=== PATIENT | female | born 1980 | race African-American/Black ===

== ENCOUNTER 2017-03-30 13:55 | Emergency (ER) | payer MEDICARE, MEDICAID ==
[~2017-03-30] VITALS: Ht 160 cm; Wt 54.4 kg
[~2017-03-30 13:55] MED LIST: NKM
[2017-03-30 14:33] LABS: APPEARANCE,URINE CLEAR; BILIRUBIN, URINE NEGATIVE (NEGATIVE); GLUCOSE, URINE (UA) NEGATIVE (NEGATIVE); KETONES,URINE NEGATIVE (NEGATIVE); LEUKOCYTE ESTERASE ,URINE 3+ (NEGATIVE); NITRITE,URINE NEGATIVE (NEGATIVE); PH,URINE 6.5 (4.5-8.0); PROTEIN,URINE NEGATIVE (NEGATIVE); UROBILINOGEN,URINE NORMAL MG/DL (0.0-1.0)
[2017-03-30 14:42] LABS: COLOR,URINE YELLOW
[2017-03-30] MEDS ORDERED: Dicyclomine HCl 10mg/5ml oral soln ORAL ONE (14:45)
[2017-03-30] MEDS ORDERED: Lidocaine 1% MPF 10mg/ml 5ml INJ ONE (14:45)
--- NOTE | 2017-03-30 15:14 | Emergency Room Report ---
History of Present Illness General Chief Complaint: Vaginal Source: Patient Present Illness HPI 36-year-old female presents to the emergency department complaining of 7/10 in severity vaginal burning, itching as well as discharge. Patient reports recent unprotected intercourse she might to be treated for STDs. Patient states her symptoms have been present for one week and she is now starting to develop lower abdominal pain and has had 2 episodes of intermittent dizziness described as off balance for a second or two. Denies diarrhea. Patient reports diarrhea x3 days she denies vomiting however she reports nausea. Denies fevers or chills. Denies recent travel or ill contacts. She reports midline lower abdominal tenderness. Denies swollen tender lymph nodes, painful joints or external vaginal lesions. Patient states that she does not know if she could be are not. Denies CP, Palpitations, LOC, AMS, Changes in Vision, Sensation, paresthesias, or a sudden severe headache. Allergies: Coded Allergies: No Known Allergies (Unverified , 12/16/11) Patient History Past Medical History: see triage record Past Surgical History: none Pertinent Family History: none Reviewed Nursing Documentation: PMH: Agreed, PSxH: Agreed Nursing Documentation-PMH Past Medical History: No Stated History Review of Systems All Other Systems: negative except mentioned in HPI Physical Exam Vital Signs Date Time Temp Pulse Resp B/P (MAP) Pulse Ox O2 Delivery O2 Flow Rate FiO2 03/30/17 13:58 98.7 80 18 136/80 99 Room Air 98.8 Sp02 EP Interpretation: reviewed, normal General Appearance: no apparent distress, alert, GCS 15, non-toxic Head: normocephalic, atraumatic Eyes: left eye other - echymosis about left eye appears healing, bilateral eye normal inspection, bilateral eye PERRL ENT: hearing grossly normal, normal voice Neck: full range of motion, no bony tend Respiratory: lungs clear, normal breath sounds, speaking full sentences Cardiovascular #1: regular rate, rhythm Gastrointestinal: normal bowel sounds - hyperactive in all 4 quadrants, soft, non-distended, no guarding, tenderness - ttp to the midline lower abdomen, no llq ttp. Rectal: deferred Genitourinary: normal inspection, no CVA tenderness, adnexa normal, cervix normal, os closed, other - thin white vaginal d/c noted. no CMT Musculoskeletal: back normal, gait/station normal, normal range of motion, non- tender Neurologic: alert, oriented x3, responsive, motor strength/tone normal, sensory intact, speech normal, grossly normal Psychiatric: judgement/insight normal Skin: normal color, no rash, warm/dry, well hydrated Lymphatic: no adenopathy Medical Decision Making PA Attestation Dr. jerome is my supervising Physician whom patient management has been discussed with. Diagnostic Impression: Primary Impression: Bacterial vaginosis Additional Impression: Urinary tract infection Qualified Codes: N30.01 - Acute cystitis with hematuria ER Course 36-year-old female presents to the emergency department complaining of 7/10 in severity vaginal burning, itching as well as discharge. Patient reports recent unprotected intercourse she might to be treated for STDs. Patient states her symptoms have been present for one week and she is now starting to develop lower abdominal pain and has had 2 episodes of intermittent dizziness described as off balance for a second or two. Denies diarrhea. Patient reports diarrhea x3 days she denies vomiting however she reports nausea. Denies fevers or chills. Denies recent travel or ill contacts. She reports midline lower abdominal tenderness. Denies swollen tender lymph nodes, painful joints or external vaginal lesions. Patient states that she does not know if she could be are not. Denies CP, Palpitations, LOC, AMS, Changes in Vision, Sensation, paresthesias, or a sudden severe headache. Ddx considered but are not limited to UTi , Pyelo, STI, Stone, Cystitis, vaginal laceration, vaginitis. Vital signs: are WNL, pt. is afebrile H& PE are most consistent with: suspected UTI with possible bacterial vaginosis , and recent exposure to venereal diseases. ORDERS: - UA labs are attached -Urine Hcg: Negative -Wet Mount Prep: rare clue cells , no yeast, no trich ED INTERVENTIONS: -Bentyl -Pyridium PO -Rocephin IM Pt able to tolerate oral food and liquids while awaiting lab results. DISCHARGE: At this time pt. is stable for d/c to home. Will provide printed patient care instructions, and any necessary prescriptions. Care plan and follow up instructions have been discussed with the patient prior to discharge. Labs Test 03/30/17 14:18 Urine Color Yellow Urine Appearance Clear Urine pH 6.5 (4.5-8.0) Urine Specific [place] 1.020 (1.005-1.035) Urine Protein Negative (NEGATIVE) Urine Glucose (UA) Negative (NEGATIVE) Urine Ketones Negative (NEGATIVE) Urine Occult Blood 1+ (NEGATIVE) Urine Nitrite Negative (NEGATIVE) Urine Bilirubin Negative (NEGATIVE) Urine Urobilinogen Normal MG/DL (0.0-1.0) Urine Leukocyte Esterase 3+ (NEGATIVE) Urine RBC 0-2 /HPF (0 - 2) Urine WBC 5-10 /HPF (0 - 2) Urine Squamous Epithelial Cells Moderate /LPF (NONE/OCC) Urine Bacteria Few /HPF (NONE) Urine Mucus Few /LPF (NONE/OCC) Urine HCG, Qualitative Negative Last Vital Signs Date Time Temp Pulse Resp B/P (MAP) Pulse Ox O2 Delivery O2 Flow Rate FiO2 03/30/17 13:58 98.7 80 18 136/80 99 Room Air 98.8 Disposition: HOME, SELF-CARE Condition: Stable Scripts Metronidazole* (METROGEL-VAGINAL*) 70 Gm Gel.w.appl 1 APPL VAGIN BEDTIME for 5 Days, #180 GM Prov: Cynthia Holcomb P.A. 03/30/17 Phenazopyridine Hcl* (PYRIDIUM*) 200 Mg Tablet 200 MG ORAL THREE TIMES A DAY, #9 TAB 0 Refills Prov: Cynthia Holcomb P.A. 03/30/17 Nitrofurantoin Monohyd/M-Cryst* (MACROBID 100 MG*) 100 Mg Capsule 100 MG ORAL EVERY 12 HOURS for 5 Days, #10 CAP Prov: Cynthia Holcomb P.A. 03/30/17 Doxycycline Hyclate* (VIBRAMYCIN*) 100 Mg Capsule 100 MG ORAL EVERY 12 HOURS for 7 Days, #14 CAP 0 Refills Prov: Cynthia Holcomb P.A. 03/30/17 Patient Instructions: Bacterial Vaginosis, [id number], Urinary Tract Infection, [id number] Additional Instructions: Take medications as directed. !!! ! Do not drink alcohol while taking Flagyl/Metronidazole as this will cause a skin reaction. Pyridium will cause your urine to change color (Red/Assumption), this is a normal side effect of the medication. Follow up with a Primary Care Provider in 3-5 days, even if your symptoms have resolved. --Please review list of primary care clinics, if you do not already have a primary care provider Return sooner to ED if new symptoms occur, or current symptoms become worse. - Please note that this Emergency Department Report was dictated using [employer] piece repairer technology software, occasionally this can lead to erroneous entry secondary to interpretation by the dictation equipment. Cynthia Holcomb Mar 30, 2017 15:14
[2017-03-30] MEDS ORDERED: Phenazopyridine 200mg tab ORAL ONE (15:15)
[2017-03-30] MEDS ORDERED: VIBRAMYCIN100 MG ORAL (15:17)
[2017-03-30] MEDS ORDERED: METROGEL-VAGINA70 G1 VAGIN (15:17)
[2017-03-30] MEDS ORDERED: NITROFURANTOIN100 M2 ORAL (15:17)
[2017-03-30] MEDS ORDERED: PHENAZOPYRIDIN200 MG ORAL (15:17)
[2017-03-30 15:27] VITALS: BP 132/76
== END 2017-03-30 15:30 | disposition home or self-care (01) ==
LOC: EDBD 13:55 → EMR 14:30
DX: N76.0 Acute vaginitis (principal); B96.89 Other specified bacterial agents as the cause of diseases classified elsewhere; N39.0 Urinary tract infection, site not specified
CPT/HCPCS: 81003; 81025; 87210; 96372; 99284; J0696

== ENCOUNTER 2018-01-10 01:48 | Emergency (ER) | payer BC, MEDICAID ==
[~2018-01-10] VITALS: Ht 160 cm; Wt 59.0 kg
[~2018-01-10 01:48] MED LIST changes: +METROGEL-VAGINA70 G1 VAGIN; +NITROFURANTOIN100 M2 ORAL; +PHENAZOPYRIDIN200 MG ORAL; +VIBRAMYCIN100 MG ORAL
[2018-01-10 01:55] VITALS: BP 126/85
[2018-01-10 02:29] LABS: APPEARANCE,URINE CLEAR; BILIRUBIN, URINE NEGATIVE (NEGATIVE); COLOR,URINE YELLOW; GLUCOSE, URINE (UA) NEGATIVE (NEGATIVE); KETONES,URINE NEGATIVE (NEGATIVE); LEUKOCYTE ESTERASE ,URINE 1+ (NEGATIVE); NITRITE,URINE NEGATIVE (NEGATIVE); PH,URINE 6 (4.5-8.0); PROTEIN,URINE 2+ (NEGATIVE); UROBILINOGEN,URINE 1 MG/DL (0.0-1.0)
[2018-01-10] MEDS ORDERED: Azithromycin 250mg tab ORAL ONE (03:00)
[2018-01-10] MEDS ORDERED: Lidocaine 1% MPF 10mg/ml 5ml INJ ONE (03:00)
[2018-01-10] MEDS ORDERED: METROGEL-VAGINA70 G1 VAGIN (03:03)
[2018-01-10 03:33] VITALS: BP 125/85
--- NOTE | 2018-01-12 06:54 | Emergency Room Report ---
History of Present Illness General Chief Complaint: Female Urogenital Problems Source: Patient Present Illness HPI 37-year-old female presents ED for evaluation. Brought in by EMS. Patient told EMS that she's been having a STD for the last year. Notes some itching and discharge. Denies pain. Denies fevers chills. Denies any recent unprotected sex. Denies dysuria or hematuria. Denies flank pain. Denies nausea or vomiting. All other aggravating relieving factors. Denies any other associated symptoms Allergies: Coded Allergies: No Known Allergies (Unverified , 12/16/11) Patient History Past Medical History: HTN Past Surgical History: none Pertinent Family History: none Social History: Denies: smoking, alcohol use, drug use Last Menstrual Period: nov 24 Now: No - unknown Immunizations: UTD Reviewed Nursing Documentation: PMH: Agreed; PSxH: Agreed Nursing Documentation-PMH Hx Hypertension: Yes Review of Systems All Other Systems: negative except mentioned in HPI Physical Exam Vital Signs Date Time Temp Pulse Resp B/P (MAP) Pulse Ox O2 Delivery O2 Flow Rate FiO2 01/10/18 01:49 98.2 74 16 126/85 97 Room Air Sp02 EP Interpretation: reviewed, normal General Appearance: no apparent distress, alert, GCS 15, non-toxic Head: normocephalic, atraumatic Eyes: bilateral eye normal inspection, bilateral eye PERRL ENT: hearing grossly normal, normal pharynx, no angioedema, normal voice Neck: full range of motion, supple/symm/no masses Respiratory: chest non-tender, lungs clear, normal breath sounds, speaking full sentences Cardiovascular #1: regular rate, rhythm, no edema Cardiovascular #2: 2+ carotid (R), 2+ carotid (L), 2+ radial (R), 2+ radial (L) , 2+ dorsalis pedis (R), 2+ dorsalis pedis (L) Gastrointestinal: normal bowel sounds, non tender, soft, non-distended, no guarding, no rebound Rectal: deferred Genitourinary: normal inspection, no CVA tenderness Musculoskeletal: back normal, gait/station normal, normal range of motion, non- tender Neurologic: alert, oriented x3, responsive, motor strength/tone normal, sensory intact, speech normal Psychiatric: judgement/insight normal, memory normal, mood/affect normal, no suicidal/homicidal ideation Reflexes: 3+ bicep (R), 3+ bicep (L), 3+ tricep (R), 3+ tricep (L), 3+ knee (R) , 3+ knee (L) Skin: normal color, no rash, warm/dry, well hydrated Lymphatic: no adenopathy Medical Decision Making Diagnostic Impression: Primary Impression: STD (female) ER Course Hospital Course 37-year-old female presents ED with discharge x 1 year Differential diagnoses include: trichimonas, gonorrhea, chlamydia Clinical course Patient placed on stretcher. After initial history physical exam reveals a female in no acute distress. Patient declined wet mount. agreed to UA UA shows no signs of UTI. Discussed findings with patient. Patient states she' s been having symptoms for over a year but patient was here in March 2017 for similar symptoms. With subsequent to treated and discharged. Patient states she does not recall that visit. We will treat clinically for gonorrhea/Chlamydia Given azithromycin/Rocephin in ED. We will discharge with MetroGel Diagnosis - STD Stable and discharged home with prescriptions for Rx metrogel. Instructed to followup with PMD. Return to ED if symptoms recur or worsen Labs Test 01/10/18 02:18 Urine Color Yellow Urine Appearance Clear Urine pH 6 (4.5-8.0) Urine Specific [place] 1.025 (1.005-1.035) Urine Protein 2+ (NEGATIVE) Urine Glucose (UA) Negative (NEGATIVE) Urine Ketones Negative (NEGATIVE) Urine Blood 1+ (NEGATIVE) Urine Nitrite Negative (NEGATIVE) Urine Bilirubin Negative (NEGATIVE) Urine Urobilinogen 1 MG/DL (0.0-1.0) Urine Leukocyte Esterase 1+ (NEGATIVE) Urine RBC 0-2 /HPF (0 - 2) Urine WBC 2-4 /HPF (0 - 2) Urine Squamous Epithelial Cells Few /LPF (NONE/OCC) Urine Bacteria Few /HPF (NONE) Urine Mucus Moderate /LPF (NONE/OCC) Urine HCG, Qualitative Negative (NEGATIVE) Last Vital Signs Date Time Temp Pulse Resp B/P (MAP) Pulse Ox O2 Delivery O2 Flow Rate FiO2 01/10/18 03:33 98.3 74 16 125/85 97 Room Air Status: improved Disposition: HOME, SELF-CARE Condition: Stable Scripts Metronidazole* (METROGEL-VAGINAL*) 70 Gm Gel.w.appl 1 APPL VAGIN BEDTIME for 5 Days, #180 GM Prov: Osei Singh MD 01/10/18 Patient Instructions: Vaginitis Osei Singh MD Jan 12, 2018 06:54
== END 2018-01-10 03:25 | disposition home or self-care (01) ==
LOC: EDBD 01:48 → EMR 02:13
DX: A64 Unspecified sexually transmitted disease (principal); I10 Essential (primary) hypertension
CPT/HCPCS: 81003; 81025; 96372; 99283; J0696

== ENCOUNTER 2018-02-09 20:19 | Emergency (ER) | payer OTHER, MEDICAID ==
[~2018-02-09] VITALS: Ht 160 cm; Wt 65.8 kg
[2018-02-09 20:20] VITALS: BP 132/87
--- NOTE | 2018-02-09 20:20 | NUR ---
ED Nurse Note: Pt walked in ER and c/o anxiety attack. Pt states she feels nausea and wrooied. Pt is AO x 4times, VSS, on room air no distress. KOJO seen Pt at bedside.
[2018-02-09] MEDS ORDERED: HydrOXYzine 50mg tab ORAL ONE (20:30)
[2018-02-09] MEDS ORDERED: BUSPAR10 MG ORAL (20:33)
--- NOTE | 2018-02-09 20:33 | Emergency Room Report ---
History of Present Illness General Chief Complaint: General Complaint Source: Patient Present Illness HPI Is a 37-year-old female with a history of cocaine abuse. She also says she has a history of chronic STD/discharge. She was here beginning of the month and given Rocephin and azithromycin. Also given MetroGel. She was recently put on doxycycline by another doctor. She called 911 because she said she felt anxious. Does not know what medicine she is supposed be on. No fever chills but no nausea no vomiting. Denies any fever or chills. Denies any recent cocaine use. She does not know when she use it last however. Allergies: Coded Allergies: No Known Allergies (Unverified , 12/16/11) Patient History Past Medical History: see triage record, old chart reviewed Past Surgical History: other Pertinent Family History: none Social History: Reports: drug use Now: No Immunizations: other Reviewed Nursing Documentation: PMH: Agreed; PSxH: Agreed Nursing Documentation-PMH Hx Hypertension: Yes Review of Systems Eye: Denies: eye pain, blurred vision ENT: Denies: ear pain, nose congestion, throat swelling Respiratory: Denies: cough, shortness of breath Cardiovascular: Denies: chest pain, palpitations Gastrointestinal: Denies: abdominal pain, diarrhea, nausea, vomiting Musculoskeletal: Denies: back pain, joint pain Skin: Denies: rash Psychiatric: Reports: anxiety Neurological: Denies: headache, numbness Endocrine: Denies: increased thirst, increased urine Hematologic/Lymphatic: Denies: easy bruising All Other Systems: negative except mentioned in HPI Physical Exam Vital Signs Date Time Temp Pulse Resp B/P (MAP) Pulse Ox O2 Delivery O2 Flow Rate FiO2 02/09/18 20:09 98.1 78 16 130/90 98 Room Air vitals normal Sp02 EP Interpretation: reviewed, normal General Appearance: well appearing, no apparent distress, alert Head: normocephalic, atraumatic Eyes: bilateral eye PERRL, bilateral eye EOMI ENT: hearing grossly normal, normal pharynx Neck: full range of motion, supple, no meningismus Respiratory: chest non-tender, lungs clear, normal breath sounds Cardiovascular #1: regular rate, rhythm, no murmur Gastrointestinal: normal bowel sounds, non tender, no mass, no organomegaly, no bruit, non-distended Musculoskeletal: back normal, gait/station normal, normal range of motion Psychiatric: mood/affect normal Skin: warm/dry Medical Decision Making Diagnostic Impression: Primary Impression: Anxiety Additional Impression: Cocaine abuse ER Course Patient with chief complaint of anxiety. No evidence of suicidal thoughts or homicidal thought. No criteria for 5150. This most likely secondary to or exacerbated by her drug abuse. We'll discharge home. Last Vital Signs Date Time Temp Pulse Resp B/P (MAP) Pulse Ox O2 Delivery O2 Flow Rate FiO2 02/09/18 20:09 98.1 78 16 130/90 98 Room Air Status: improved Disposition: HOME, SELF-CARE Condition: Stable Scripts Buspirone Hcl* (BUSPAR*) 10 Mg Tablet 10 MG ORAL THREE TIMES A DAY, #30 TAB 0 Refills Prov: Holden Hammonds MD 02/09/18 Additional Instructions: stop using drugs. Follow up with your doctor and rehab in 7 days. Return if worse. Holden Hammonds MD Feb 09, 2018 20:33
[2018-02-09 20:45] VITALS: BP 126/75
--- NOTE | 2018-02-09 20:45 | NUR ---
ED Nurse Note: Pt cleared DC by KOJO. Pt is AO x 4times, VSS, on room air no distress. Belongings given to Pt. ID bend removed. DC and Meds instructions given to Pt, Pt understood well. Pt walked out unit with steady gait. Pt states she will go to safety place.
== END 2018-02-09 20:45 | disposition home or self-care (01) ==
LOC: EDBD 20:19 → EMR 20:30
DX: F41.9 Anxiety disorder, unspecified (principal); I10 Essential (primary) hypertension; F14.10 Cocaine abuse, uncomplicated
CPT/HCPCS: 99283

== ENCOUNTER 2018-03-16 20:12 | Emergency (ER) | payer BC, MEDICAID, MEDICARE, OTHER ==
[~2018-03-16] VITALS: Ht 167.6 cm; Wt 49.9 kg
[~2018-03-16 20:12] MED LIST changes: +BUSPAR10 MG ORAL
[2018-03-16 20:28] VITALS: BP 128/80
--- NOTE | 2018-03-16 20:37 | NUR ---
ED Nurse Note: pt brought in by [facility] [id number], c/o STD sx and vaginal discharge for long time, pt unable to recall when it started but has been having it for long periods of time. PT aA&ox4, gcs=15, skin warm and dry, resp even and unlabored, -n/v/d, ambulates w/steady gait. will cont monitor.
--- NOTE | 2018-03-16 20:40 | NUR ---
ED Nurse Note: pt refused to do mini-log activity pt states she doesn't want to do them.
[2018-03-16] MEDS ORDERED: METROGEL-VAGINA70 G1 VAGIN (20:51)
[2018-03-16] MEDS ORDERED: NITROFURANTOIN100 M2 ORAL (20:51)
[2018-03-16 21:00] VITALS: BP 120/77
[2018-03-16] MEDS ORDERED: Lidocaine 1% MPF 10mg/ml 5ml INJ ONE (21:00)
[2018-03-16] MEDS ORDERED: Azithromycin 250mg tab ORAL ONE (21:00)
--- NOTE | 2018-03-16 21:10 | NUR ---
Homeless Discharge: Pt given community resources but states she has place to go with her , states she does not need transportation, food offered but refused. pt has weather appropriate clothing on.
--- NOTE | 2018-03-16 21:10 | Emergency Room Report ---
History of Present Illness General Chief Complaint: Female Urogenital Problems Source: Patient Present Illness Allergies: Coded Allergies: No Known Allergies (Unverified , 12/16/11) Patient History Last Menstrual Period: 02/20/2018 Now: No : 5 Para: 1 Nursing Documentation-[facility] Past Medical History: No History, Except For Hx Hypertension: Yes Physical Exam Vital Signs Date Time Temp Pulse Resp B/P (MAP) Pulse Ox O2 Delivery O2 Flow Rate FiO2 03/16/18 20:24 98.4 88 16 128/84 96 Room Air Medical Decision Making Diagnostic Impression: Primary Impression: urethritis Last Vital Signs Date Time Temp Pulse Resp B/P (MAP) Pulse Ox O2 Delivery O2 Flow Rate FiO2 03/16/18 20:24 98.4 88 16 128/84 96 Room Air Status: improved Disposition: HOME, SELF-CARE Condition: Improved Scripts Metronidazole* (METROGEL-VAGINAL*) 70 Gm Gel.w.appl 1 APPL VAGIN BEDTIME for 7 Days, GM Prov: Mirta Lozano DO 03/16/18 Nitrofurantoin Monohyd/M-Cryst* (MACROBID 100 MG*) 100 Mg Capsule 100 MG ORAL EVERY 12 HOURS for 7 Days, CAP Prov: Mirta Lozano DO 03/16/18 [facility] Patient Instructions: Urethritis, Adult, Vaginitis Additional Instructions: Patient is provided with the discharge instructions notified to follow up with primary doctor in the next 2-3 days otherwise return to the er with any worsening symptoms. Please note that this report is being documented using [employer] technology. This can lead to erroneous entry secondary to incorrect interpretation by the dictating instrument. Mirta Lozano DO Mar 16, 2018 21:09
--- NOTE | 2018-03-16 21:10 | NUR ---
ED Nurse Note: pt cleared to d/c per ERMD order, pt discharge instruction provided w/prescription, pt advised to follow up with pcp or return to ed if s/s worsen or new s/s develop, pt education done via discussion and hand out, wristband removed, pt verbalized understanding and agrees with plan. pt vss, ambulatory w/ steady gait, resp even and unlabored, airway intact, all belongings left with pt.
== END 2018-03-16 23:00 | disposition home or self-care (01) ==
LOC: EDBD 20:12 → EMR 21:05
DX: N34.2 Other urethritis (principal)
CPT/HCPCS: 96372; 96374; 99284; J0696

== ENCOUNTER 2019-05-05 08:22 | Emergency (ER) | payer MEDICARE, OTHER ==
[~2019-05-05] VITALS: Ht 160 cm; Wt 81.2 kg
[~2019-05-05 08:22] MED LIST changes: +CLINDAMYCIN HC300 MG ORAL; +METRONIDAZOLE500 MG ORAL
--- NOTE | 2019-05-05 08:35 | NUR ---
ED Nurse Note: Pt ambulated to ED d/t vaginal concerns. Pt complains of itchiness and vag. discharge x 7 days. VSS, afebrile on triage, placed on bed.
[2019-05-05 08:40] VITALS: BP 124/75
[2019-05-05 09:04] LABS: APPEARANCE,URINE CLEAR; BILIRUBIN, URINE NEGATIVE (NEGATIVE); GLUCOSE, URINE (UA) NEGATIVE (NEGATIVE); KETONES,URINE 1+ (NEGATIVE); LEUKOCYTE ESTERASE ,URINE 3+ (NEGATIVE); NITRITE,URINE NEGATIVE (NEGATIVE); PH,URINE 5 (4.5-8.0); PROTEIN,URINE NEGATIVE (NEGATIVE); UROBILINOGEN,URINE NORMAL MG/DL (0.0-1.0)
[2019-05-05 09:10] LABS: COLOR,URINE YELLOW
--- NOTE | 2019-05-05 09:23 | Emergency Room Report ---
History of Present Illness General Chief Complaint: Vaginal Source: Patient Present Illness HPI 38-year-old female presents with some bloody vaginal discharge currently on the tail end of her menstrual cycle, patient states she has burning with urination no aggravating leaving factors severity is mild, intermittent x7 days no fevers no chills patient presents for evaluation Allergies: Coded Allergies: No Known Allergies (Unverified , 12/16/11) COVID-19 Screening Contact w/high risk pt: No Recent Travel to affected area: No Experienced COVID-19 symptoms?: No COVID-19 symptoms experienced: Fever (T>100.4F or >38C) Patient History Past Medical History: see triage record Last Menstrual Period: 04/22/19 Now: No Reviewed Nursing Documentation: PMH: Agreed; PSxH: Agreed Nursing Documentation-PMH Past Medical History: No Stated History Hx Hypertension: Yes Review of Systems All Other Systems: negative except mentioned in HPI Physical Exam Vital Signs Date Time Temp Pulse Resp B/P (MAP) Pulse Ox O2 Delivery O2 Flow Rate FiO2 05/05/19 08:28 98.2 76 20 124/75 (91) 99 Room Air General Appearance: well appearing, no apparent distress Head: normocephalic, atraumatic Eyes: bilateral eye PERRL, bilateral eye EOMI ENT: hearing grossly normal, normal voice Neck: full range of motion, supple Respiratory: no respiratory distress, speaking full sentences Genitourinary: ext genitalia/vag normal, other - Game Artist Sabine RN, patient with normal vaginal discharge, no CMT no adnexal tenderness Neurologic: alert, normal gait Psychiatric: mood/affect normal Skin: no rash Medical Decision Making Diagnostic Impression: Primary Impression: UTI (urinary tract infection) Qualified Codes: N30.00 - Acute cystitis without hematuria ER Course 38-year-old female presents with dysuria most likely a UTI no evidence of vaginal dysfunction no evidence of STD no CMT Disposition home with return precautions follow-up with PCP Last Vital Signs Date Time Temp Pulse Resp B/P (MAP) Pulse Ox O2 Delivery O2 Flow Rate FiO2 05/05/19 08:40 98.2 81 20 124/75 99 Room Air Disposition: HOME, SELF-CARE Condition: Stable Scripts Cephalexin* (KEFLEX*) 500 Mg Tablet 500 MG ORAL EVERY 6 HOURS, #28 CAP Prov: Zac Savage MD 05/05/19 Referrals: NOT CHOSEN IPA/,REFERRING (PCP) [facility] Megan Mast. [facility] Patient Instructions: Urinary Tract Infection, [id number] Additional Instructions: The patient was provided with discharge instructions, notified to follow-up with a primary care doctor and or specialist in the next 24-48 hours, and to return to the ED if they have worsening of their symptoms. Please note that this report is being documented using [employer] technology. This can lead to erroneous entry secondary to incorrect interpretation by the dictating instrument. Zac Savage MD May 05, 2019 09:23
[2019-05-05] MEDS ORDERED: CEPHALEXIN500 M1 ORAL (09:24)
[2019-05-05 09:29] VITALS: BP 124/75
--- NOTE | 2019-05-05 09:29 | NUR ---
ER DISCHARGE NOTE: Patient is cleared to be discharged per ERMD, pt is aox4, on room air, with stable vital signs. pt was given dc and prescription instructions, pt was able to verbalize understanding, pt id band removed. pt is able to ambulate with steady gait. pt took all belongings.
[2019-05-08] MEDS ORDERED: BACTRIM DS TAB1 EAC1 ORAL (09:04)
== END 2019-05-05 09:29 | disposition home or self-care (01) ==
LOC: EMR 08:59
DX: N30.00 Acute cystitis without hematuria (principal); I10 Essential (primary) hypertension; R50.9 Fever, unspecified
CPT/HCPCS: 81003; 81025; 87086; 87181; 99283

== ENCOUNTER 2019-06-08 01:13 | Emergency (ER) | payer MEDICARE, OTHER ==
[~2019-06-08] VITALS: Ht 154.9 cm; Wt 68.0 kg
[~2019-06-08 01:13] MED LIST changes: +BACTRIM DS TAB1 EAC1 ORAL; +CEPHALEXIN500 M1 ORAL
[2019-06-08 01:30] VITALS: BP 131/66
[2019-06-08] MEDS ORDERED: ZyPREXA Zydis 10mg tab ORAL ONE (01:30)
[2019-06-08 01:34] LABS: BILIRUBIN, URINE NEGATIVE (NEGATIVE); GLUCOSE, URINE (UA) NEGATIVE (NEGATIVE); KETONES,URINE 2+ (NEGATIVE); NITRITE,URINE NEGATIVE (NEGATIVE); PH,URINE 6 (4.5-8.0); PROTEIN,URINE 2+ (NEGATIVE); UROBILINOGEN,URINE 1 MG/DL (0.0-1.0)
[2019-06-08 01:42] LABS: APPEARANCE,URINE SLIGHTLY CLOUDY; COLOR,URINE YELLOW; LEUKOCYTE ESTERASE ,URINE 2+ (NEGATIVE)
--- NOTE | 2019-06-08 01:51 | Emergency Room Report ---
History of Present Illness General Chief Complaint: Medication Refill Source: Patient Present Illness HPI Patient is a 38-year-old female brought in by EMS after increased vaginal itching. Patient reports having gradual onset of symptoms. She reports having run out of her Zyprexa. denies any fever. Patient had no other complaints. She denies being . She reports being currently on her menses. Allergies: Coded Allergies: No Known Allergies (Unverified , 12/16/11) COVID-19 Screening Contact w/high risk pt: No Recent Travel to affected area: No Experienced COVID-19 symptoms?: No COVID-19 symptoms experienced: Fever (T>100.4F or >38C) Patient History Past Medical History: see triage record Now: No Reviewed Nursing Documentation: PMH: Agreed; PSxH: Agreed Nursing Documentation-PMH Hx Hypertension: Yes History Of Psychiatric Problem: Yes - anxiety Review of Systems All Other Systems: negative except mentioned in HPI Physical Exam Vital Signs Date Time Temp Pulse Resp B/P (MAP) Pulse Ox O2 Delivery O2 Flow Rate FiO2 06/08/19 01:15 98.2 76 16 128/70 (89) 100 Room Air General Appearance: well appearing, no apparent distress, alert, GCS 15 Head: normocephalic, atraumatic ENT: hearing grossly normal, normal voice Neck: full range of motion, supple Respiratory: no respiratory distress, speaking full sentences Musculoskeletal: no calf tenderness Neurologic: normal gait Psychiatric: mood/affect normal Skin: no rash Medical Decision Making Diagnostic Impression: Primary Impression: Vaginitis Additional Impression: Encounter for medication refill ER Course Patient presented for vaginal itching. Differential diagnosis includes not limited to bacterial vaginitis, Tess yeast infection, bacterial vaginosis among others. Patient has a benign exam and does not appear to require any imaging or laboratory testing at this time. Patient does not show any definite evidence of urinary infection as a specimen appears to be somewhat contaminated. She was given prescription for refill of her psychiatric medications as well as Zyprexa in the emergency department. Patient stable for outpatient management. She advised to follow-up with her primary care physician for recheck. She advised to return if worse. This medical record is generated with [employer] compliance engineer software. There may be some compliance engineer discrepancies related to use of this software Last Vital Signs Date Time Temp Pulse Resp B/P (MAP) Pulse Ox O2 Delivery O2 Flow Rate FiO2 06/08/19 01:30 99.5 77 16 131/66 100 Room Air Status: improved Disposition: HOME, SELF-CARE Condition: Stable Scripts Olanzapine* (ZYPREXA*) 10 Mg Tablet 10 MG ORAL DAILY, #14 TAB 0 Refills Prov: Michael Hernandez MD 06/08/19 Referrals: NOT CHOSEN [facility]/,REFERRING (PCP) Michael Hernandez MD Jun 08, 2019 01:51
[2019-06-08] MEDS ORDERED: ZYPREXA10 MG ORAL (01:53)
[2019-06-08] MEDS ORDERED: Fluconazole 100mg tab ORAL ONE (02:00)
[2019-06-08 02:05] VITALS: BP 131/66
== END 2019-06-08 02:05 | disposition home or self-care (01) ==
LOC: EDSEX 01:13 → EDUNIT# 01:13 → EDBD 01:13 → EMR 01:31
DX: N76.0 Acute vaginitis (principal); I10 Essential (primary) hypertension; F41.9 Anxiety disorder, unspecified
CPT/HCPCS: 81003; 81025; 87086; 99283

== ENCOUNTER → 2019-07-24 | Emergency (ER) | payer MEDICARE, OTHER ==
[~2019-07-24] VITALS: Ht 160 cm; Wt 72.6 kg
[~2019-07-24] MED LIST changes: +Bactrim-DS 1 tab ORAL ONE; +Levofloxacin 500mg tab ORAL ONE; +ZYPREXA10 MG ORAL
--- NOTE | 2019-07-24 23:17 | Emergency Room Report ---
History of Present Illness General Chief Complaint: General Complaint Source: Patient Present Illness HPI This a 38-year-old female with a psychiatric history. She also has history of cocaine abuse. She presents with chief complaint of not feeling well and feeling anxious. She was just at hospital in [place] 2 days ago and prescribed Atarax. She said is not helping her. She said she felt anxious and dizzy. No syncope. No nausea no vomiting. No chest pain. Denies any other complaint. Allergies: Coded Allergies: No Known Allergies (Unverified , 12/16/11) COVID-19 Screening Contact w/high risk pt: No Recent Travel to affected area: No Experienced COVID-19 symptoms?: No COVID-19 symptoms experienced: Fever (T>100.4F or >38C) COVID-19 Testing performed MEDICAL HISTORIAN: No Patient History Past Medical History: see triage record, old chart reviewed, psych hx Past Surgical History: none Pertinent Family History: none Social History: Reports: drug use Now: No Immunizations: other Reviewed Nursing Documentation: PMH: Agreed; PSxH: Agreed Nursing Documentation-PMH Hx Hypertension: Yes Review of Systems Eye: Denies: eye pain, blurred vision ENT: Denies: ear pain, nose congestion, throat swelling Respiratory: Denies: cough, shortness of breath Cardiovascular: Denies: chest pain, palpitations Gastrointestinal: Denies: abdominal pain, diarrhea, nausea, vomiting Musculoskeletal: Denies: back pain, joint pain Skin: Denies: rash Neurological: Denies: headache, numbness Endocrine: Denies: increased thirst, increased urine Hematologic/Lymphatic: Denies: easy bruising All Other Systems: negative except mentioned in HPI Physical Exam Vital Signs Date Time Temp Pulse Resp B/P (MAP) Pulse Ox O2 Delivery O2 Flow Rate FiO2 07/24/19 23:07 98.4 72 16 136/72 (93) 98 Room Air Vitals normal Sp02 EP Interpretation: reviewed, normal General Appearance: well appearing, no apparent distress, alert Head: normocephalic, atraumatic Eyes: bilateral eye PERRL, bilateral eye EOMI ENT: hearing grossly normal, normal pharynx Neck: full range of motion, supple, no meningismus Respiratory: chest non-tender, lungs clear, normal breath sounds Cardiovascular #1: regular rate, rhythm, no murmur Gastrointestinal: normal bowel sounds, non tender, no mass, no organomegaly, no bruit, non-distended Musculoskeletal: back normal, normal range of motion, gait/station normal Psychiatric: mood/affect normal Medical Decision Making Diagnostic Impression: Primary Impression: Cocaine abuse Additional Impressions: Anxiety UTI (urinary tract infection) Qualified Codes: N30.00 - Acute cystitis without hematuria ER Course Patient presents with anxiety symptoms. She looks well. This may be induced by her cocaine abuse. No evidence of suicidal thoughts homicidal thought. No criteria for 5150. She may have a urinary tract infection. Because of her living status, will go ahead and prescribe antibiotics. Last time she grew out ESBL E. coli sensitive to Bactrim. She also grew out enterococcus. This one is probably a colonization. This patient is a chronic risk of self injury due to poor impulse control, limited coping skills, and judgment intermittently impaired by intoxication. I believe that the available clinical evidence to suggest that these characteristics derived primarily from personality disorder and are likely very stable over time. Hospitalization would likely attenuate risk of self-harm only during long-term period, without lasting risk reduction. Serious self-harm , while possible, would likely be inadvertent, and because of impulsivity, and foreseeable. For these reasons, I do not believe hospitalization would provide meaningful reduction in risk of self-harm. Last Vital Signs Date Time Temp Pulse Resp B/P (MAP) Pulse Ox O2 Delivery O2 Flow Rate FiO2 07/24/19 23:07 98.4 72 16 136/72 (93) 98 Room Air Status: improved Disposition: HOME, SELF-CARE Condition: Stable Scripts Trimethoprim/Sulfamethoxazole 160/800* (BACTRIM DS TABLET*) 1 Each Tablet 1 TAB ORAL Q12H, #14 TAB 0 Refills Prov: Holden Hammonds MD 07/25/19 Additional Instructions: Stop using drugs. Follow-up with your doctor in 7 days. Return if worse. Holden Hammonds MD Jul 24, 2019 23:17
[2019-07-24 23:28] VITALS: BP 132/72
[2019-07-24 23:59] LABS: APPEARANCE,URINE CLEAR; BILIRUBIN, URINE NEGATIVE (NEGATIVE); GLUCOSE, URINE (UA) NEGATIVE (NEGATIVE); KETONES,URINE 1+ (NEGATIVE); LEUKOCYTE ESTERASE ,URINE 1+ (NEGATIVE); NITRITE,URINE NEGATIVE (NEGATIVE); PH,URINE 5 (4.5-8.0); PROTEIN,URINE 2+ (NEGATIVE); UROBILINOGEN,URINE 1 MG/DL (0.0-1.0)
[2019-07-25 00:03] LABS: COLOR,URINE YELLOW
[2019-07-25 00:38] VITALS: BP 118/72
== END | disposition home or self-care (01) ==
LOC: EDUNIT# 23:05 → EDBD 23:07 → EMR 23:19
DX: F14.10 Cocaine abuse, uncomplicated (principal); F41.9 Anxiety disorder, unspecified; N30.00 Acute cystitis without hematuria; I10 Essential (primary) hypertension
CPT/HCPCS: 80307; 81003; 99284

== ENCOUNTER 2019-08-18 21:09 | Emergency (ER) | payer MEDICARE, MEDICAID ==
[~2019-08-18] VITALS: Ht 170.2 cm; Wt 77.1 kg
[~2019-08-18 21:09] MED LIST changes: -Bactrim-DS 1 tab ORAL ONE; -Levofloxacin 500mg tab ORAL ONE
[2019-08-18 21:14] VITALS: BP 136/86
--- NOTE | 2019-08-18 21:38 | Emergency Room Report ---
History of Present Illness General Chief Complaint: Behavioral Complaint Source: Patient, Law Enforcement (Ailin Saleh DO) Present Illness HPI The patient states she has a history of major depression and schizophrenia. She states that she has a lot of personal problems. She states she is been under a lot of stress lately. She states that she has felt suicidal and tried to strangle herself with her hands today. She admits that she uses crack cocaine regularly. She denies alcohol or other drug use. She denies recent illness. She has no other complaints. (Ailin Saleh DO) Allergies: Coded Allergies: No Known Allergies (Unverified , 12/16/11) COVID-19 Screening Contact w/high risk pt: No Recent Travel to affected area: No Experienced COVID-19 symptoms?: No COVID-19 symptoms experienced: Fever (T>100.4F or >38C) COVID-19 Testing performed FIELD SALES TRAINER: No (Ailin Saleh DO) Patient History Past Medical History: see triage record, HTN, psych hx - Depression, Schizophrenia Social History: Reports: drug use - Crack cocaine; Denies: smoking, alcohol use Last Menstrual Period: UNK Reviewed Nursing Documentation: PMH: Agreed; PSxH: Agreed (Ailin Saleh DO) Nursing Documentation-PMH Hx Hypertension: Yes History Of Psychiatric Problem: Yes (Ailin Saleh DO) Review of Systems All Other Systems: negative except mentioned in HPI (Ailin Saleh DO) Physical Exam Vital Signs Date Time Temp Pulse Resp B/P (MAP) Pulse Ox O2 Delivery O2 Flow Rate FiO2 08/18/19 21:04 97.2 86 18 136/86 (103) 99 Room Air Sp02 EP Interpretation: reviewed, normal General Appearance: no apparent distress, alert, GCS 15, non-toxic Head: normocephalic, atraumatic Eyes: bilateral eye normal inspection ENT: hearing grossly normal, normal pharynx, no angioedema, normal voice Neck: full range of motion, supple/symm/no masses Respiratory: chest non-tender, lungs clear, normal breath sounds, no respiratory distress, no retraction, no accessory muscle use, speaking full sentences Cardiovascular #1: regular rate, rhythm, no edema Gastrointestinal: normal bowel sounds, non tender, soft, non-distended, no guarding, no rebound Rectal: deferred Musculoskeletal: back normal, normal range of motion, gait/station normal, non- tender Neurologic: alert, motor strength/tone normal, oriented x3, sensory intact, responsive, speech normal Psychiatric: judgement/insight normal, memory normal, depressed affect Skin: no rash, normal color (Ailin Saleh DO) Medical Decision Making Diagnostic Impression: Primary Impression: Suicidal ideation Additional Impression: Cocaine abuse ER Course This patient is suicidal ideation. She is calm and cooperative. She is on a 5150 hold by [place] [facility]. She is awaiting (Ailin Saleh DO) ER Course Please see above note. Patient on 5150 and labs were pending. Labs significant for positive cocaine otherwise unremarkable. Patient medically clear at 2255. Patient slept through the night without difficulty. As the patient is on a 5150 sitter is ordered. Patient signed out to Dr. Hernandez. Laboratory Tests Test 08/18/19 21:30 White Blood Count 5.9 K/UL (4.8-10.8) Red Blood Count 5.07 M/UL (4.20-5.40) Hemoglobin 15.0 G/DL (12.0-16.0) Hematocrit 45.0 % (37.0-47.0) Mean Corpuscular Volume 89 FL (80-99) Mean Corpuscular Hemoglobin 29.6 PG (27.0-31.0) Mean Corpuscular Hemoglobin Concent 33.3 G/DL (32.0-36.0) Red Cell Distribution Width 12.6 % (11.6-14.8) Platelet Count 301 K/UL (150-450) Mean Platelet Volume 8.0 FL (6.5-10.1) Neutrophils (%) (Auto) 71.2 % (45.0-75.0) Lymphocytes (%) (Auto) 23.3 % (20.0-45.0) Monocytes (%) (Auto) 4.1 % (1.0-10.0) Eosinophils (%) (Auto) 0.1 % (0.0-3.0) Basophils (%) (Auto) 1.4 % (0.0-2.0) Urine HCG, Qualitative Negative (NEGATIVE) Sodium Level 146 MMOL/L (136-145) H Potassium Level 3.5 MMOL/L (3.5-5.1) Chloride Level 107 MMOL/L (98-107) Carbon Dioxide Level 28 MMOL/L (21-32) Anion Gap 11 mmol/L (5-15) Blood Urea Nitrogen 6 mg/dL (7-18) L Creatinine 1.3 MG/DL (0.55-1.30) Estimated Glomerular Filtration Rate 55.3 mL/min (>60) Glucose Level 106 MG/DL (74-106) Calcium Level 8.8 MG/DL (8.5-10.1) Total Bilirubin 0.3 MG/DL (0.2-1.0) Aspartate Amino Transferase (AST) 13 U/L (15-37) L Alanine Aminotransferase (ALT) 12 U/L (12-78) Alkaline Phosphatase 96 U/L (46-116) Total Protein 7.3 G/DL (6.4-8.2) Albumin 4.0 G/DL (3.4-5.0) Globulin 3.3 g/dL Albumin/Globulin Ratio 1.2 (1.0-2.7) Thyroid Stimulating Hormone (TSH) 0.402 uiU/mL (0.358-3.740) Salicylates Level 0.9 ug/mL (2.8-20) L Urine Opiates Screen Negative (NEGATIVE) Acetaminophen Level < 2 MCG/ML (10-30) L Urine Barbiturates Screen Negative (NEGATIVE) Phencyclidine (PCP) Screen Negative (NEGATIVE) Urine Amphetamines Screen Negative (NEGATIVE) Urine Benzodiazepines Screen Negative (NEGATIVE) Urine Cocaine Screen Positive (NEGATIVE) H Urine Marijuana (THC) Screen Negative (NEGATIVE) Serum Alcohol < 3 mg/dL (Paddy Mohr MD) Last Vital Signs Date Time Temp Pulse Resp B/P (MAP) Pulse Ox O2 Delivery O2 Flow Rate FiO2 08/18/19 21:04 97.2 86 18 136/86 (103) 99 Room Air ([facility]) Last Vital Signs Date Time Temp Pulse Resp B/P (MAP) Pulse Ox O2 Delivery O2 Flow Rate FiO2 08/19/19 05:20 97.2 75 16 132/79 99 Room Air Status: improved (Paddy Mohr MD) Disposition: PSYCH HOSP/UNIT Condition: Stable Referrals: NOT CHOSEN KRYSTIAN/,REFERRING (PCP) [facility] Aug 18, 2019 21:38 Paddy Mohr MD Aug 18, 2019 22:59
[2019-08-18 22:08] LABS: BASOPHILS % (AUTO) 1.4 % (0.0-2.0); EOSINOPHILS % (AUTO) 0.1 % (0.0-3.0); LYMPHOCYTES % (AUTO) 23.3 % (20.0-45.0); MEAN CORPUSCULAR VOLUME 89 FL (80-99); MONOCYTES % (AUTO) 4.1 % (1.0-10.0); NEUTROPHILS % (AUTO) 71.2 % (45.0-75.0); PLATELET COUNT 301 K/UL (150-450); RED BLOOD COUNT 5.07 M/UL (4.20-5.40); RED CELL DISTRIBUTION WIDTH 12.6 % (11.6-14.8); WHITE BLOOD COUNT 5.9 K/UL (4.8-10.8)
[2019-08-18 22:09] LABS: ANION GAP 11 mmol/L (5-15); BLOOD UREA NITROGEN 6 mg/dL (7-18); CALCIUM 8.8 MG/DL (8.5-10.1); CARBON DIOXIDE 28 MMOL/L (21-32); CHLORIDE 107 MMOL/L (98-107); CREATININE 1.3 MG/DL (0.55-1.30); POTASSIUM 3.5 MMOL/L (3.5-5.1); SODIUM 146 MMOL/L (136-145)
[2019-08-18 22:22] LABS: ALANINE AMINOTRANSFERASE 12 U/L (12-78); ALBUMIN/GLOBULIN RATIO 1.2 (1.0-2.7); ALKALINE PHOSPHATASE 96 U/L (46-116); ASPARTATE AMINO TRANSFERASE 13 U/L (15-37); BILIRUBIN,TOTAL 0.3 MG/DL (0.2-1.0)
[2019-08-18 23:08] VITALS: BP 131/79
[2019-08-19 01:19] VITALS: BP 135/81
[2019-08-19 03:39] VITALS: BP 139/76
[2019-08-19 05:20] VITALS: BP 132/79
[2019-08-19 09:53] VITALS: BP 127/78
[2019-08-19 14:00] VITALS: BP 129/76
[2019-08-19 14:29] LABS: APPEARANCE,URINE SLIGHTLY CLOUDY; BILIRUBIN, URINE NEGATIVE (NEGATIVE); GLUCOSE, URINE (UA) NEGATIVE (NEGATIVE); KETONES,URINE 1+ (NEGATIVE); LEUKOCYTE ESTERASE ,URINE 1+ (NEGATIVE); NITRITE,URINE NEGATIVE (NEGATIVE); PH,URINE 8 (4.5-8.0); PROTEIN,URINE 1+ (NEGATIVE); UROBILINOGEN,URINE 1 MG/DL (0.0-1.0)
[2019-08-19 14:31] LABS: COLOR,URINE YELLOW
[2019-08-19 15:29] VITALS: BP 125/78
== END 2019-08-19 15:27 ==
LOC: EDBD 21:09 → EMR 21:23
DX: R45.851 Suicidal ideations (principal); F14.10 Cocaine abuse, uncomplicated; I10 Essential (primary) hypertension; F32.9 Major depressive disorder, single episode, unspecified; F20.9 Schizophrenia, unspecified
CPT/HCPCS: 36415; 80053; 80307; 81003; 81025; 84443; 85025; 99285; G0480; U0002